=== PATIENT | female | born 1965 | race Caucasian/White ===

== ENCOUNTER 2019-01-26 04:54 | Emergency (ER) | payer OTHER ==
[~2019-01-26] VITALS: Ht 160 cm; Wt 70.3 kg
[~2019-01-26 04:54] MED LIST: ALPR0.255 PO; TEMA30CA5 PO
--- NOTE | 2019-01-26 05:10 | NUR ---
Dr. Bain at bedside for MSE.
[2019-01-26] MEDS ORDERED: ALPRAZOLAM 0.25 MG TABLET PO ONE (05:30)
[2019-01-26] MEDS ORDERED: ASPIRIN 81 MG TAB.CHEW PO ONE (05:30)
[2019-01-26] MEDS ORDERED: NITROGLYCERIN OINT 1 GM PACKET TP ONE ×2 (05:30→05:33)
[2019-01-26] MEDS ORDERED: ACETAMINOPHEN ES 500 MG TABLET PO ONE (05:30)
[2019-01-26] MEDS ORDERED: ACETAMINOPHEN ES 500 MG TABLET ONE (05:32)
[2019-01-26] MEDS ORDERED: ASPIRIN 81 MG TAB.CHEW ONE (05:32)
[2019-01-26] MEDS ORDERED: ALPRAZOLAM 0.5 MG TABLET ONE (05:33)
[2019-01-26 05:39] LABS: BASOPHILS # (AUTO) 0.1 K/uL (0.0-8.0); BASOPHILS % (AUTO) 0.5 % (0.0-2.0); EOSINOPHILS # (AUTO) 0.1 K/uL (0.0-0.7); EOSINOPHILS % (AUTO) 0.5 % (0.0-7.0); HEMATOCRIT 40.8 % (31.2-41.9); HEMOGLOBIN 13.5 g/dL (10.9-14.3); LYMPHOCYTES # (AUTO) 1.4 K/uL (20.0-40.0); LYMPHOCYTES % (AUTO) 11.4 % (20.5-51.5); MEAN CORPUSCULAR HEMOGLOBIN 28.7 uug (24.7-32.8); MEAN CORPUSCULAR HGB CONC 33 g/dL (32.3-35.6); MEAN CORPUSCULAR VOLUME 86.8 fL (75.5-95.3); MONOCYTES # (AUTO) 0.4 K/uL (2.0-10.0); MONOCYTES % (AUTO) 3.1 % (0.0-11.0); NEUTROPHILS # (AUTO) 10.3 K/uL (1.8-8.9); NEUTROPHILS % (AUTO) 84.5 % (38.5-71.5); PLATELET COUNT (AUTO) 273 K/uL (179-408); WHITE BLOOD COUNT (AUTO) 12.2 K/uL (3.8-11.8)
--- NOTE | 2019-01-26 05:40 | NUR ---
Xray at bedside.
[2019-01-26 05:46] LABS: CREATININE 0.8 mg/dL (0.6-1.3); POTASSIUM 3.8 mmol/L (3.5-5.1)
[2019-01-26 05:59] LABS: BILIRUBIN,DIRECT 0.1 mg/dL (0.0-0.2); BILIRUBIN,TOTAL 0.4 mg/dL (0.2-1.0); TOTAL PROTEIN, SERUM 7.2 g/dL (6.4-8.2)
[2019-01-26] MEDS ORDERED: SERT50TA PO (06:29)
--- NOTE | 2019-01-26 07:07 | NUR ---
Report given to Julianne bradley.
--- NOTE | 2019-01-26 07:10 | NUR ---
Patient is resting comfortably in bed with eyes closed, NAD noted.
--- NOTE | 2019-01-26 07:41 | NUR ---
Paged Dr Lund(telephone lineman) per Dr Maria request. Awaiting call back.
--- NOTE | 2019-01-26 07:43 | NUR ---
BIPIN GARBER spoke to Dr Lund.
--- NOTE | 2019-01-26 08:40 | NUR ---
2nd Troponin was drawn by lab coordinator. Pt denies chest pain, SOB.
--- NOTE | 2019-01-26 09:42 | NUR ---
IV removed. Catheter intact and site benign. Pressure and 4x4 gauze applied to site. No bleeding noted.
--- NOTE | 2019-01-26 09:42 | NUR ---
Patient discharged to home in stable conditon. Written and verbal after care instructions given. Patient verbalizes understanding of instructions.
[2019-01-26 09:43] VITALS: BP 100/65
== END 2019-01-26 09:44 | disposition home or self-care (01) ==
LOC: ER 04:56
DX: F41.9 Anxiety disorder, unspecified (principal); F17.290 Nicotine dependence, other tobacco product, uncomplicated; Z79.899 Other long term (current) drug therapy
CPT/HCPCS: 36415; 70030-TC; 71045; 85025; 93005; A4663; A9150